=== PATIENT | female | born 1950 | race American Indian/Alaskan Native ===

== ENCOUNTER 2017-04-25 18:05 | Observation (INO) | payer MEDICARE ==
[2017-04-25 18:06] VITALS: BMI 24.7
[2017-04-25] MEDS ORDERED: Sodium Chloride 0.9% 500 ML IV ONE ×3 (18:32→19:59)
[2017-04-25 19:07] LABS: SQUAMOUS EPITHIAL 3 /hpf (0-5); URINE BACTERIA OCC (<OCC); URINE BILIRUBIN NEGATIVE (NEGATIVE); URINE BLOOD NEGATIVE (NEGATIVE); URINE CLARITY Clear (Clear); URINE COLOR Straw (YELLOW); URINE GLUCOSE (UA) NORMAL (Normal); URINE LEUKOCYTE ESTERASE NEG Leu/uL (Negative); URINE NITRATE NEGATIVE (NEGATIVE); URINE PROTEIN NEGATIVE (NEGATIVE); URINE UROBILINOGEN NORMAL mg/dL (0.2-1.0)
[2017-04-25 19:09] LABS: ALBUMIN 4.3 g/dL (3.5-5.0)
[2017-04-25 19:10] LABS: PROTHROMBIN TIME 11.3 SECONDS (9.7-12.2)
[2017-04-25 19:12] LABS: ALB/GLOB RATIO 1.1 (1.0-2.1); AST/SGOT 28 U/L (14-36); BASO % 0.8 % (0.0-2.0); BLOOD UREA NITROGEN 15 mg/dL (7-17); EOS # 0.1 K/uL (0.0-0.7); EOS % 1.3 % (0.0-4.0); GFR AFRICAN-AMERICAN > 60; GFR NON-AFRICAN AMERICAN > 60; HEMOGLOBIN 15.5 g/dL (11.0-16.0); LYMPH # 3.2 K/uL (1.0-4.3); LYMPH % 58.4 % (20.0-40.0); MEAN CELL VOLUME 82.1 fL (81.0-99.0); MEAN CORPUSCULAR HEMOGLOBIN 27.2 pg (27.0-31.0); MEAN CORPUSCULAR HGB CONC 33.1 g/dL (33.0-37.0); MEAN PLATELET VOLUME 8.7 fL (7.2-11.7); MONO # 0.7 K/uL (0.0-0.8); MONO % 12.6 % (0.0-10.0); NEUT # 1.5 K/uL (1.8-7.0); NEUT % 26.9 % (50.0-75.0); NRBC % 0.1 % (0.0-2.0); RBC 5.68 Mil/uL (3.80-5.20); RED CELL DISTRIBUTION WIDTH 15.3 % (11.5-14.5); WHITE BLOOD COUNT 5.5 K/uL (4.8-10.8)
[2017-04-25 19:13] LABS: ALT/SGPT 33 U/L (9-52); CALCIUM 9.1 mg/dl (8.6-10.4); MAGNESIUM 1.9 mg/dL (1.6-2.3)
--- NOTE | 2017-04-25 21:09 | CT ---
EXAM: CT Head Without Intravenous Contrast CLINICAL HISTORY: 66 years old, female; Signs and symptoms; Syncope and collapse; Additional info: Near syncope, abdi-oral numbness TECHNIQUE: Axial computed tomography images of the head/brain without intravenous contrast. This CT exam was performed using one or more of the following dose reduction techniques: automated exposure control, adjustment of the mA and/or kV according to patient size, and/or use of iterative reconstruction technique. COMPARISON: No relevant prior studies available. FINDINGS: Brain: Mild atrophy. Minimal encephalomalacia within LEFT frontal region. No intracranial hemorrhage. No mass. No definite edema. Ventricles: No hydrocephalus. Bones/joints: No acute fracture. Soft tissues: Unremarkable. Sinuses: Scattered minimal mucosal thickening of ethmoid sinuses. Mastoid air cells: No mastoid effusion. Orbits: Unremarkable as visualized. IMPRESSION: 1. No definite acute intracranial abnormality. Acute infarction may be CT occult within first 24 hours. If a focal deficit persists, consider followup CT or MRI for further evaluation. 2. Incidental/non-acute findings are described above.
--- NOTE | 2017-04-25 22:23 | C.PDOC ---
History Of Present Illness Pt had a near-syncopal episode associated with abdi-oral numbness. Time Seen by Provider: 04/25/17 18:21 Chief Complaint (Nursing): Dizziness/Lightheaded History Per: Patient Onset/Duration Of Symptoms: Hrs (tonight) Current Symptoms Are (Timing): Better Number Of Syncopal Episodes: 1 Associated Symptoms Preceding Syncopal Episode: Lightheadedness Fall Associated With With Symptoms: No Severity: Moderate Additional History Per: Prior Records - Symptoms Of CVA Associated Symptoms: denies: Impaired Speech, Seizure Activity, New Vision Deficit(Left), New Vision Deficit(Right), New Confusion Recent Head Trauma: No Past Medical History Reviewed: Historical Data, Nursing Documentation, Vital Signs Vital Signs: Last Vital Signs Temp 98.2 F 04/25/17 18:12 Pulse 77 04/25/17 18:53 Resp 16 04/25/17 18:53 BP 133/78 04/25/17 18:53 Pulse Ox 98 04/25/17 18:53 - Medical History PMH: HTN, Hypercholesterolemia - [facility] Procedures INSPECTION OF LEFT EAR, ENDO (06/02/16) Family History: States: Hypertension - Social History Hx Tobacco Use: No Hx Alcohol Use: No Hx Substance Use: No - Immunization History Hx Tetanus Toxoid Vaccination: No Hx Pneumococcal Vaccination: No Review Of Systems Except As Marked, All Systems Reviewed And Found Negative. Constitutional: Positive for: Malaise. Negative for: Fever Cardiovascular: Positive for: Light Headedness. Negative for: Chest Pain Respiratory: Negative for: Shortness of Breath, Hemoptysis Gastrointestinal: Negative for: Vomiting, Abdominal Pain, Diarrhea Genitourinary: Negative for: Dysuria Musculoskeletal: Negative for: Neck Pain, Back Pain Skin: Negative for: Rash Neurological: Positive for: Numbness (abdi-oral). Negative for: Weakness, Incoordination, Change in Speech, Confusion, Seizures, Altered Mental Status, Headache Physical Exam - Physical Exam Appears: Non-toxic, No Acute Distress Skin: Normal Color, Warm, Dry, No Rash Head: Atraumatic, Normacephalic Eye(s): bilateral: Normal Inspection, PERRL, EOMI Oral Mucosa: Moist, No Drooling, No Trismus Neck: Normal ROM, Supple Cardiovascular: Rhythm Regular Respiratory: Normal Breath Sounds, No Accessory Muscle Use Gastrointestinal/Abdominal: Soft, No Tenderness Back: No CVA Tenderness Extremity: Normal ROM Neurological/Psych: Oriented x3, Normal Speech, Normal Cognition, Normal Cranial Nerves, No Cerebellar Signs, Normal Motor, Normal Sensation ED Course And Treatment - Laboratory Results Result Diagrams: 04/25/17 18:57 04/25/17 18:57 Lab Interpretation: No Acute Changes ECG: Interpreted By Me, Viewed By Me ECG Rhythm: Sinus Rhythm, Nonspecific Changes Rate From EC O2 Sat by Pulse Oximetry: 98 Pulse Ox Interpretation: Normal - CT Scan/US CT head Other Rad Studies (CT/US): Read By Radiologist, Radiology Report Reviewed CT/US Interpretation: IMPRESSION: 1. No definite acute intracranial abnormality. Acute infarction may be CT. occult within first 24 hours. If a focal deficit persists, consider followup. CT or MRI for further evaluation. 2. Incidental/non-acute findings are described above. - Physician Consult Information Physician Contacted: Abdullahi Wild (PMD) Outcome Of Conversation: He wants pt placed under Dr. Antoni Gil's service. Progress - Interventions Interventions:: Observation, Intravenous fluid - Data Reviewed Data Reviewed: Lab, Diagnostic imaging, EKG, Old records - Patient Status Patient status: Mostly improved - Continuity of Care Discussed patient case with:: Patient, Family-HIPPA compliant, ED Nurse, PMD, Covering for PMD Disposition Discussed With : Danny Gil Comment: He accepted pt on his service. Doctor Will See Patient In The: Hospital Counseled Patient/Family Regarding: Studies Performed, Diagnosis - Disposition Disposition: HOSPITALIZED Disposition Time: 22:25 Condition: STABLE - Clinical Impression Clinical Impression: Near syncope, Perioral numbness
--- NOTE | 2017-04-25 23:42 | CP.PCM.HP ---
Past Patient History - Tetanus Immunizations Tetanus Immunization: Unknown - Past Medical History & Family History Past Medical History?: Yes - Past Social History Smoking Status: Heavy Smoker > 10 Cigarettes Daily - CARDIAC Hx Hypercholesterolemia: Yes Hx Hypertension: Yes - NEUROLOGICAL HX Cerebrovascular Accident: Yes () - MUSCULOSKELETAL/RHEUMATOLOGICAL Hx Falls: No - PSYCHIATRIC Hx Substance Use: No - ANESTHESIA Hx Anesthesia: Yes Hx Anesthesia Reactions: No Hx Malignant Hyperthermia: No Meds Allergies/Adverse Reactions: Allergies Allergy/AdvReac Type Severity Reaction Status Date / Time No Known Allergies Allergy Verified 04/25/17 18:18 Results - Vital Signs Recent Vital Signs: Last Vital Signs Temp 98.2 F 04/25/17 18:12 Pulse 80 04/25/17 22:56 Resp 14 04/25/17 22:56 BP 124/71 04/25/17 22:56 Pulse Ox 98 04/25/17 22:56 - Labs Result Diagrams: 04/25/17 18:57 04/25/17 18:57
[2017-04-26 04:12] LABS: CK-MB 1.01 ng/mL (0.0-3.38)
--- NOTE | 2017-04-26 12:47 | CP.PCM.PN ---
Subjective - Date & Time of Evaluation Date of Evaluation: 04/26/17 Time of Evaluation: 12:40 - Subjective Subjective: clinically same Objective - Vital Signs/Intake and Output Vital Signs (last 24 hours): Temp Pulse Resp BP Pulse Ox 98.2 F 80 20 120/80 98 04/25/17 18:12 04/26/17 09:35 04/25/17 23:55 04/26/17 09:35 04/25/17 22:56 - Medications Medications: Current Medications Aspirin (Ecotrin) 81 mg PO DAILY [facility] Last Admin: 04/26/17 09:32 Dose: 81 mg Losartan Potassium (Cozaar) 50 mg PO DAILY [facility] Last Admin: 04/26/17 09:34 Dose: 50 mg Pneumococcal Polyvalent Vaccine (Pneumovax 23 Vaccine) 0.5 ml IM .ONCE ONE Stop: 04/28/17 14:01 Rosuvastatin Calcium (Crestor) 10 mg PO HS [facility] - Labs Labs: PT 11.3 SECONDS (9.7-12.2) 04/25/17 18:57 INR 1.0 04/25/17 18:57 APTT 29 SECONDS (21-34) 04/25/17 18:57 - Constitutional Appears: Well - Head Exam Head Exam: ATRAUMATIC, NORMAL INSPECTION, NORMOCEPHALIC - Eye Exam Eye Exam: EOMI, Normal appearance, PERRL Pupil Exam: NORMAL ACCOMODATION, PERRL - ENT Exam ENT Exam: Mucous Membranes Moist, Normal Exam - Neck Exam Neck Exam: Full ROM, Normal Inspection. absent: Lymphadenopathy - Respiratory Exam Respiratory Exam: Decreased Breath Sounds - Cardiovascular Exam Cardiovascular Exam: REGULAR RHYTHM, +S1, +S2. absent: Murmur - GI/Abdominal Exam GI & Abdominal Exam: Soft, Diminished Bowel Sounds - Rectal Exam Rectal Exam: Deferred
[2017-04-26 14:21] LABS: CK-MB 0.92 ng/mL (0.0-3.38)
[2017-04-26] MEDS: Enoxaparin 40 mg Syringe SC SCH (14:45)
--- NOTE | 2017-04-26 17:37 | CON ---
DATE: 04/26/2017 CHIEF COMPLAINT: Near syncope. HISTORY OF PRESENT ILLNESS: This is a 66-year-old woman with history of hypertension, uncontrolled hypercholesterolemia, history of hypertensive urgency in the past. She became lightheaded with perioral numbness, rather spinning sensation of the room, but no focal weakness or paresthesias of the extremities. She had elevated systolic blood pressure over 165 which is high and slightly elevated diastolic pressure. Currently, her blood pressure is much better. She is doing much better at this time. No focal neurological deficits. On examination, CAT scan of the head showed no acute intracranial abnormality. PAST MEDICAL HISTORY: Hypertension, hypercholesterolemia. ALLERGIES: No known drug allergies. FAMILY HISTORY: Noncontributory. REVIEW OF SYSTEMS: A 14-point review of systems negative except per HPI. MEDICATIONS: Reviewed by nurse reconciliation sheet. PHYSICAL EXAMINATION VITAL SIGNS: Temperature 98, pulse rate of 80, blood pressure 120/80, respiratory rate *------*. GENERAL: The patient is sitting up in bed, in no acute distress. HEENT: Atraumatic, normocephalic. PERRLA. Extraocular muscles intact. NECK: Supple. No JVD. No adenopathy noted. LUNGS: Clear to auscultation. No adventitious sounds. HEART: S1 and S2. Normal rate and rhythm. No murmur, rubs, or gallops. ABDOMEN: Soft, nontender, nondistended. Bowel sounds are present. EXTREMITIES: No clubbing. No cyanosis. Peripheral pulses 2+ felt bilaterally. NEUROLOGIC: The patient is alert, oriented to person, place, month and year. Speech is fluent without any errors. Cranial nerves II through XII intact. Motor exam: Moves all extremities equally. Toes downgoing bilaterally. Sensory exam: Light touch, proprioception, vibration intact. DTRs are 2+. Coordination, [id number] intact. Gait deferred for now. LABORATORY DATA: Sodium is 141, potassium 3.9, chloride 100, carbon dioxide 26, BUN of 15, creatinine 0.7, random glucose 111. ASSESSMENT: 1. A 66-year-old woman history of hypertension, hypercholesterolemia, came in for lightheadedness with perioral numbness. Her symptoms are likely secondary to mild transient hypertensive urgency. At this time, she is clinically stable. Neuro exam is nonfocal. CAT scan of the head showed no acute intracranial abnormalities. At this time, recommend low-sodium, low-fat diet. 2. Keep the systolic blood pressure between 130 to 140. 3. Aspirin 81 and atorvastatin 20 for stroke prevention and continue present medical management. She is cleared from a neurological perspective. Tim Calle MD
[2017-04-27 08:35] VITALS: BP 114/72; PULSE 73; RESP 18; TEMP 97.6; O2SAT 96
[2017-04-27] MEDS: Enoxaparin 40 mg Syringe SC SCH (10:37)
--- NOTE | 2017-04-27 12:45 | CP.PCM.CON ---
History of Present Illness - History of Present Illness History of Present Illness: 66-year-old lady with history of hypertension and mixed hyperlipidemia, reportedly with prior cerebrovascular accident twice however she has no residual deficit. She also had history of thyroid malignancy post surgery and radiation. She was admitted through the emergency department with feeling weak and dizzy and addition to numbness around her mouth. There was no loss of consciousness and no reported hypotension or arrhythmia in the emergency department or on EKG. The CAT scan of the head was negative for cerebrovascular accident or bleed. Recent echocardiogram at [facility] few months back was with normal left ventricular contractility no congenital abnormalities, no aortic stenosis and no pericardial disease. At this time she is Rather comfortable after observation with stable blood pressure after presentation with elevated blood pressure, labs had no anemia no evidence of bleed, and troponin I was flat for myocardial injury. Unlikely arrhythmia or cardiac etiology for the dizziness and near syncope. Further stress test can be done as outpatient. Review of Systems - Constitutional Constitutional: Anorexia, Weakness - EENT Eyes: absent: Discharge Ears: absent: Ear Discharge, Dizziness Nose/Mouth/Throat: absent: Epistaxis - Cardiovascular Cardiovascular: absent: Acrocyanosis, Chest Pain, Diaphoresis, Palpitations, Pedal Edema, Syncope - Respiratory Respiratory: absent: Cough, Dyspnea, Hemoptysis - Gastrointestinal Gastrointestinal: absent: Diarrhea, Hematochezia, Vomiting - Genitourinary Genitourinary: absent: Hematuria - Reproductive: Female Reproductive:Female: Post Menopausal Past Patient History - Tetanus Immunizations Tetanus Immunization: Unknown - Past Medical History & Family History Past Medical History?: Yes - Past Social History Smoking Status: Former Smoker - CARDIAC Hx Cardiac Disorders: Yes Hx Hypercholesterolemia: Yes Hx Hypertension: Yes - PULMONARY Hx Respiratory Disorders: No - NEUROLOGICAL Hx Neurological Disorder: Yes HX Cerebrovascular Accident: Yes () - HEENT Hx HEENT Problems: No - RENAL Hx Chronic Kidney Disease: No - ENDOCRINE/METABOLIC Hx Endocrine Disorders: No - HEMATOLOGICAL/ONCOLOGICAL Hx Blood Disorders: No - INTEGUMENTARY Hx Dermatological Problems: No - MUSCULOSKELETAL/RHEUMATOLOGICAL Hx Musculoskeletal Disorders: No Hx Falls: No - GASTROINTESTINAL Hx Gastrointestinal Disorders: No - GENITOURINARY/GYNECOLOGICAL Hx Genitourinary Disorders: No Hx Uterine Cancer: Yes (Had radiation,in remission) - PSYCHIATRIC Hx Psychophysiologic Disorder: No Hx Substance Use: No - SURGICAL HISTORY Hx Surgeries: Yes Hx Hysterectomy: Yes (Partial 1998) - ANESTHESIA Hx Anesthesia: Yes Hx Anesthesia Reactions: No Hx Malignant Hyperthermia: No Has any member of the family had a problem w/ anesthesia?: No Meds Home Medications: Home Medication List Medication Instructions Recorded Confirmed Type Losartan [Cozaar] 50 mg PO DAILY tab 04/27/17 Rx Losartan [Cozaar] 50 mg PO DAILY #30 tab 04/27/17 Rx Allergies/Adverse Reactions: Allergies Allergy/AdvReac Type Severity Reaction Status Date / Time No Known Allergies Allergy Verified 04/25/17 18:18 - Medications Medications: Current Medications Aspirin (Ecotrin) 81 mg PO DAILY [facility] Last Admin: 04/27/17 10:37 Dose: 81 mg Enoxaparin Sodium (Lovenox) 40 mg SC DAILY [facility] Last Admin: 04/27/17 10:37 Dose: 40 mg Losartan Potassium (Cozaar) 50 mg PO DAILY [facility] Last Admin: 04/27/17 10:37 Dose: 50 mg Pneumococcal Polyvalent Vaccine (Pneumovax 23 Vaccine) 0.5 ml IM .ONCE ONE Stop: 04/28/17 14:01 Rosuvastatin Calcium (Crestor) 10 mg PO [facility] Last Admin: 04/26/17 21:38 Dose: 10 mg Physical Exam - Constitutional Appears: Non-toxic - Head Exam Head Exam: ATRAUMATIC - Eye Exam Eye Exam: EOMI - ENT Exam ENT Exam: Mucous Membranes Moist - Neck Exam Neck exam: Negative for: Lymphadenopathy, Thyromegaly - Respiratory Exam Respiratory Exam: Clear to Auscultation Bilateral. absent: Chest Wall Tenderness, Rales - Cardiovascular Exam Cardiovascular Exam: REGULAR RHYTHM, Systolic Murmur - GI/Abdominal Exam GI & Abdominal Exam: Normal Bowel Sounds. absent: Organomegaly - Rectal Exam Rectal Exam: Deferred - Extremities Exam Extremities exam: Positive for: normal capillary refill. Negative for: calf tenderness - Neurological Exam Neurological exam: Alert, Oriented x3 - Psychiatric Exam Psychiatric exam: Normal Mood - Skin Skin Exam: Dry Results - Vital Signs Recent Vital Signs: Last Vital Signs Temp 97.6 F 04/27/17 07:25 Pulse 73 04/27/17 07:25 Resp 18 04/27/17 07:25 BP 114/72 04/27/17 07:25 Pulse Ox 96 04/27/17 07:25 - Labs Result Diagrams: 04/25/17 18:57 04/25/17 18:57 Labs: Laboratory Results - last 24 hr 04/26/17 13:54 Total Creatine Kinase 146 H CK-MB (Mass) 0.92 Troponin I, Quant < 0.0120 Assessment & Plan (1) Near syncope Status: Acute Comment: Unlikely cardiac arrhythmia, normal left ventricular contractility on echo, no aortic stenosis. (2) History of CVA (cerebrovascular accident) Status: Chronic (3) Hyperlipemia Status: Chronic (4) History of hypertension Status: Chronic Priority: Low (5) History of thyroid cancer Status: Chronic Priority: Low
--- NOTE | 2017-04-27 14:33 | CP.PCM.PN ---
Subjective - Date & Time of Evaluation Date of Evaluation: 04/27/17 Time of Evaluation: 14:26 - Subjective Subjective: 66 Y/O FEMALE SEEN AND EXAMINED BY DR Antoni GARZA, PT DENIES ANY CHEST PAIN, SHORTNESS OF BREATH, PALPITATIONS, RESP EASY AND UNLABORED. NAD Objective - Vital Signs/Intake and Output Vital Signs (last 24 hours): Temp Pulse Resp BP Pulse Ox 97.6 F 73 18 114/72 96 04/27/17 07:25 04/27/17 07:25 04/27/17 07:25 04/27/17 07:25 04/27/17 07:25 - Medications Medications: Current Medications Aspirin (Ecotrin) 81 mg PO DAILY [facility] Last Admin: 04/27/17 10:37 Dose: 81 mg Enoxaparin Sodium (Lovenox) 40 mg SC DAILY [facility] Last Admin: 04/27/17 10:37 Dose: 40 mg Losartan Potassium (Cozaar) 50 mg PO DAILY [facility] Last Admin: 04/27/17 10:37 Dose: 50 mg Pneumococcal Polyvalent Vaccine (Pneumovax 23 Vaccine) 0.5 ml IM .ONCE ONE Stop: 04/28/17 14:01 Rosuvastatin Calcium (Crestor) 10 mg PO HS [facility] Last Admin: 04/26/17 21:38 Dose: 10 mg - Labs Labs: PT 11.3 SECONDS (9.7-12.2) 04/25/17 18:57 INR 1.0 04/25/17 18:57 APTT 29 SECONDS (21-34) 04/25/17 18:57 Assessment and Plan - Assessment and Plan (Free Text) Assessment: 66 Y/O FEMALE WITH PMHX HTN, HYPERCHOLESTEROLEMIA, ADMITTED FOR NEAR SYNCOPE, PERIORAL NUMBNESS. CT HEAD- NO ACUTE INTRACRANIAL ABNORMALITIES, ECHO- NORMAL EF. PT CLEARED FOR D/C PER DR DUENAS AND DR MINA, PT EDUCATED TO CONTINUE HOME MEDS, F/U WITH DR GARZA, DR MINA, DR DUENAS IN THE OFFICE, OUTPT STRESS TEST, RETURN TO ED OF ANY WORSENING SYMPTOMS AGREE W/POC, VERBALIZE UNDERSTANDING.
[2017-04-28] MEDS ORDERED: Pneumococcal 23-Valent Vaccine IM ONE (14:00)
--- NOTE | 2017-04-28 17:19 | CARD ---
APPROVED REPORT EKG Measurement Heart [id number] <Conclusion> Normal sinus rhythm Poor R wave progression. May be due to electrodes placement.
== END 2017-04-27 16:34 | disposition home or self-care (01) ==
LOC: C.ER 18:05 → C.9E 22:26 → C.6T 22:50
PROVIDERS: ADMIT Internal Medicine Nephrology; ATTEND Internal Medicine Nephrology
DX: R55 Syncope and collapse (principal); I10 Essential (primary) hypertension; I16.0 Hypertensive urgency; Z87.891 Personal history of nicotine dependence
CPT/HCPCS: 36415; 70450; 80053; 81001; 82948; 83735; 84484; 85025; 85610; 85730; 97116; 97161; 99285; G0378; G8978; G8979; J1650; J7040

== ENCOUNTER 2017-10-14 15:42 | Emergency (ER) | payer MEDICARE ==
[2017-10-14 15:42] VITALS: BMI 24.7
[2017-10-14 16:10] VITALS: RESP 18; O2SAT 100
--- NOTE | 2017-10-14 16:38 | C.PDOC ---
History Of Present Illness 67 y/o female with PMHx of HTN presents to ED with complaints of left sided "sharp" chest pain since this morning and productive of light sputum cough for 3 days. Patient reports the pain radiates to her back and states she took Tylenol and Aleve with improvement but symptoms recurred back which prompted visit to ED. Patient denies fever, chills, sob, trauma or any other complaints at this time. Time Seen by Provider: 10/14/17 16:26 Chief Complaint (Nursing): Chest Pain History Per: Patient History/Exam Limitations: no limitations Onset/Duration Of Symptoms: Days Current Symptoms Are (Timing): Still Present Past Medical History Reviewed: Historical Data, Nursing Documentation, Vital Signs Vital Signs: Last Vital Signs Temp 98.2 F 10/14/17 18:05 Pulse 84 10/14/17 18:05 Resp 18 10/14/17 18:05 BP 132/80 10/14/17 18:05 Pulse Ox 100 10/14/17 18:05 - Medical History PMH: HTN, Hypercholesterolemia Surgical History: No Surg Hx - [facility] Procedures INSPECTION OF LEFT EAR, ENDO (06/02/16) Family History: States: Hypertension - Social History Hx Tobacco Use: No Hx Alcohol Use: No Hx Substance Use: No - Immunization History Hx Tetanus Toxoid Vaccination: No Hx Influenza Vaccination: No Hx Pneumococcal Vaccination: No Review Of Systems Constitutional: Negative for: Fever, Chills Cardiovascular: Positive for: Chest Pain Respiratory: Positive for: Cough, Sputum. Negative for: Shortness of Breath Gastrointestinal: Negative for: Nausea, Vomiting Skin: Negative for: Rash Neurological: Negative for: Weakness, Numbness Physical Exam - Physical Exam Appears: Non-toxic, No Acute Distress Skin: Normal Color, Warm, Dry, No Rash Head: Atraumatic, Normacephalic Oral Mucosa: Moist Neck: Normal ROM, Supple Chest: Other (Reproducible chest pain to palpation) Cardiovascular: Rhythm Regular Respiratory: No Rales, No Rhonchi, Wheezing (Left sided) Gastrointestinal/Abdominal: Soft, No Tenderness, No Guarding, No Rebound Extremity: Normal ROM, No Pedal Edema, Capillary Refill (<2 seconds) Neurological/Psych: Oriented x3 ED Course And Treatment - Laboratory Results Result Diagrams: 10/14/17 16:39 10/14/17 16:39 Lab Interpretation: Normal ECG: Interpreted By Me ECG Rhythm: Sinus Rhythm (with Q waves in III, AVF) ECG Interpretation: No Acute Changes O2 Sat by Pulse Oximetry: 100 (RA) Pulse Ox Interpretation: Normal - Radiology CXR: Viewed By Me, Read By Radiologist CXR Interpretation: Yes: Other (Increased interstitial infiltrates) Reevaluation Time: 19:10 Reassessment Condition: Improved (No discomfort at this time.) Disposition Counseled Patient/Family Regarding: Studies Performed, Diagnosis, Need For Followup, Rx Given - Disposition Referrals: Abdullahi Wild MD [Staff Provider] - Disposition: HOME/ ROUTINE Disposition Time: 19:11 Condition: STABLE Prescriptions: Acetaminophen with Codeine [Tylenol with Codeine #3 Tablet] 1 each PO Q4 PRN # 14 tablet PRN Reason: Pain, Severe (8-10) Amoxicillin/Clavulanate [Augmentin 875 MG-125 MG] 1 tab PO BID #14 tab Instructions: Chest Wall Pain (ED), Acute Cough (ED), Urinary Tract Infection in Women (ED) Forms: [facility] (O[place]i) - Clinical Impression Clinical Impression: Chest wall pain, Cough, UTI (urinary tract infection) - Scribe Statement The provider has reviewed the documentation as recorded by the Scribjackson Saldivar All medical record entries made by the Scribe were at my direction and personally dictated by me. I have reviewed the chart and agree that the record accurately reflects my personal performance of the history, physical exam, medical decision making, and the department course for this patient. I have also personally directed, reviewed, and agree with the discharge instructions and disposition.
[2017-10-14 16:42] LABS: BASO # 0.1 K/uL (0.0-0.2); BASO % 0.9 % (0.0-2.0); EOS % 0.8 % (0.0-4.0); HEMOGLOBIN 15.7 g/dL (11.0-16.0); LYMPH # 2.7 K/uL (1.0-4.3); LYMPH % 45.2 % (20.0-40.0); MEAN CELL VOLUME 81.6 fL (81.0-99.0); MEAN CORPUSCULAR HEMOGLOBIN 26.6 pg (27.0-31.0); MEAN CORPUSCULAR HGB CONC 32.6 g/dL (33.0-37.0); MEAN PLATELET VOLUME 7.9 fL (7.2-11.7); MONO # 0.6 K/uL (0.0-0.8); MONO % 9.6 % (0.0-10.0); NEUT # 2.6 K/uL (1.8-7.0); NEUT % 43.5 % (50.0-75.0); NRBC % 0.2 % (0.0-2.0); RBC 5.91 Mil/uL (3.80-5.20); RED CELL DISTRIBUTION WIDTH 15.2 % (11.5-14.5); WHITE BLOOD COUNT 5.9 K/uL (4.8-10.8)
[2017-10-14 16:54] LABS: ALBUMIN 4.1 g/dL (3.5-5.0); CALCIUM 8.3 mg/dl (8.6-10.4); GFR AFRICAN-AMERICAN > 60; GFR NON-AFRICAN AMERICAN > 60
[2017-10-14 16:58] LABS: ALT/SGPT 23 U/L (9-52); AST/SGOT 33 U/L (14-36); BLOOD UREA NITROGEN 12 mg/dL (7-17)
[2017-10-14 17:10] LABS: SQUAMOUS EPITHIAL 1 /hpf (0-5); URINE BACTERIA MOD (<OCC); URINE BILIRUBIN NEGATIVE (NEGATIVE); URINE BLOOD NEGATIVE (NEGATIVE); URINE CLARITY Clear (Clear); URINE COLOR Yellow (YELLOW); URINE GLUCOSE (UA) NORMAL (Normal); URINE LEUKOCYTE ESTERASE TRACE Leu/uL (Negative); URINE NITRATE POSITIVE (NEGATIVE); URINE PROTEIN NEGATIVE (NEGATIVE); URINE UROBILINOGEN NORMAL mg/dL (0.2-1.0)
--- NOTE | 2017-10-14 17:30 | RAD ---
HISTORY: SOB COMPARISON: Comparison chest dated 05/31/2016. PacsNo prior. TECHNIQUE: Chest PA and lateral FINDINGS: LUNGS: The interstitial markings are increased and coarsened. Rule out sequela of reactive/ inflammatory airway disease or viral illness. No focal consolidation. Minor biapical pleural thickening. PLEURA: As above. No significant effusion. No evidence of pneumothorax. CARDIOVASCULAR: Heart size is upper limits of normal. OSSEOUS STRUCTURES: No significant abnormalities. VISUALIZED UPPER ABDOMEN: Normal. OTHER FINDINGS: None. IMPRESSION: The interstitial markings are increased and coarsened. Rule out sequela of reactive/ inflammatory airway disease or viral illness. No focal consolidation.
[2017-10-14 19:04] VITALS: BP 132/80; PULSE 84; TEMP 98.2
[2017-10-14] MEDS ORDERED: Amoxicillin-Clav 875-125 mg Tab PO STA (19:06)
[2017-10-14] MEDS ORDERED: Amoxicillin-Clav 875-125 mg Tab PO ONE (19:34)
--- NOTE | 2017-10-15 15:01 | CARD ---
APPROVED REPORT EKG Measurement Heart [id number] <Conclusion> Normal sinus rhythm Inferior infarct, age undetermined Abnormal ECG
== END 2017-10-14 19:41 | disposition home or self-care (01) ==
LOC: C.ER 15:42
DX: R07.89 Other chest pain (principal); N39.0 Urinary tract infection, site not specified; R05 Cough; I10 Essential (primary) hypertension; E78.00 Pure hypercholesterolemia, unspecified; F17.210 Nicotine dependence, cigarettes, uncomplicated

== ENCOUNTER 2018-11-30 11:23 | Emergency (ER) | payer MEDICARE ==
[2018-11-30 11:35] VITALS: BP 130/85; PULSE 83; RESP 16; TEMP 98.4; O2SAT 97; BMI 27.4
[2018-11-30] MEDS ORDERED: Lidocaine 5% Patch TD STA (11:55)
[2018-11-30] MEDS ORDERED: Lidocaine 5% Patch TD ONE (11:59)
--- NOTE | 2018-11-30 12:29 | C.PDOC ---
History Of Present Illness Pt c/o left lower back pain. Denies injury. Time Seen by Provider: 11/30/18 11:42 Chief Complaint (Nursing): Back Pain History Per: Patient Onset/Duration Of Symptoms: Days (1) Current Symptoms Are (Timing): Still Present Quality Of Discomfort: "Pain" Severity: Moderate Associated Symptoms: None Exacerbating Factor(s): Turning, Movement Additional History Per: Prior Records Past Medical History Reviewed: Historical Data, Nursing Documentation, Vital Signs Vital Signs: Last Vital Signs Temp 98.4 F 11/30/18 11:34 Pulse 83 11/30/18 11:34 Resp 16 11/30/18 11:34 BP 130/85 11/30/18 11:34 Pulse Ox 97 11/30/18 11:34 - Medical History PMH: HTN, Hypercholesterolemia - [facility] Procedures INSPECTION OF LEFT EAR, ENDO (06/02/16) Family History: States: Hypertension - Social History Hx Tobacco Use: No Hx Alcohol Use: No Hx Substance Use: No - Immunization History Hx Tetanus Toxoid Vaccination: No Hx Influenza Vaccination: No Hx Pneumococcal Vaccination: No Review Of Systems Except As Marked, All Systems Reviewed And Found Negative. Constitutional: Negative for: Fever, Weakness Cardiovascular: Negative for: Chest Pain Respiratory: Negative for: Shortness of Breath Gastrointestinal: Negative for: Abdominal Pain, Diarrhea Genitourinary: Negative for: Dysuria, Incontinence, Hematuria Musculoskeletal: Negative for: Neck Pain Skin: Negative for: Rash Neurological: Negative for: Weakness, Numbness Physical Exam - Physical Exam Appears: Non-toxic, No Acute Distress Skin: Normal Color, Warm, Dry, No Rash Head: Atraumatic, Normacephalic Eye(s): bilateral: PERRL, EOMI Neck: Normal ROM, Supple Cardiovascular: Rhythm Regular Respiratory: Normal Breath Sounds, No Accessory Muscle Use Gastrointestinal/Abdominal: Soft, No Tenderness Back: No CVA Tenderness, No Vertebral Tenderness, Paraspinal Tenderness (left lower) Extremity: Normal ROM, No Pedal Edema, No Calf Tenderness Neurological/Psych: Oriented x3, Normal Motor, Normal Sensation Gait: Steady ED Course And Treatment O2 Sat by Pulse Oximetry: 97 Pulse Ox Interpretation: Normal Reassessment Condition: Improved Disposition Counseled Patient/Family Regarding: Diagnosis, Need For Followup, Rx Given - Disposition Disposition: HOME/ ROUTINE Disposition Time: 12:28 Condition: STABLE Additional Instructions: Follow up with your doctor for further evaluation and treatment. Return to the ER if you develop weakness, numbness, abdominal pain, trouble urinating, worsening of symptoms or if you have any other concerns. Prescriptions: Cyclobenzaprine [Cyclobenzaprine HCl] 10 mg PO TID PRN #15 tab PRN Reason: Muscle Spasm Naproxen 375 mg PO BID PRN #20 tablet PRN Reason: Pain, Moderate (4-7) Instructions: Low Back Pain (DC) - Clinical Impression Clinical Impression: Left low back pain
== END 2018-11-30 12:45 | disposition home or self-care (01) ==
LOC: C.ER 11:23
DX: M54.5 Low back pain (principal)